=== PATIENT | female | born 1955 | race Caucasian/White ===

== ENCOUNTER 2019-09-06 17:12 | Emergency (ER) | payer MEDICARE, OTHER ==
[2019-09-06 17:38] LABS: BILIRUBIN,URINE NEGATIVE (NEGATIVE); GLUCOSE, URINE (UA) NEGATIVE (NEGATIVE); KETONES,URINE (UA) NEGATIVE (NEGATIVE); LEUKOCYTE ESTERASE, URINE NEGATIVE (NEGATIVE); NITRITE,URINE NEGATIVE (NEGATIVE); OCCULT BLOOD,URINE NEGATIVE (NEGATIVE); PROTEIN,URINE NEGATIVE (NEGATIVE); UROBILINOGEN,URINE 0.2 (NORMAL) E.U./dL (NORMAL)
[2019-09-06 17:40] LABS: CLARITY,URINE CLEAR (CLEAR)
--- NOTE | 2019-09-06 17:44 | ED Physician Documentation ---
PD HPI FEMALE - Stated complaint Stated Complaint: FEMALE /BACK PX - Chief complaint Chief Complaint: UTI - History obtained from History obtained from: Patient (63-year-old woman with history of recurrent UTIs presents with 2 weeks of right flank pain and urinary urgency and frequency. She had a urine done a couple of days ago which was positive and started on Cipro but subsequently the culture came back as a pretty much hernandez resistant bug, it was sensitive only to the penems. She was referred here for further evaluation and treatment. She denies fevers or chills.) Review of Systems Constitutional: denies: Fever, Chills Throat: denies: Sore throat Cardiac: denies: Chest pain / pressure, Palpitations Respiratory: denies: Dyspnea, Cough PD PAST MEDICAL HISTORY - Past Medical History Past Medical History: No Cardiovascular: Hypertension, High cholesterol Respiratory: None Endocrine/Autoimmune: Type 2 diabetes, HyPOthyroidism GI: None : None HEENT: None Psych: None Musculoskeletal: None Derm: None - Past Surgical History Ortho: Carpal Tunnel surgery /SWIFT TENDER: Tubal ligation - Present Medications Home Medications: Ambulatory Orders Medication Instructions Recorded Confirmed Aspirin [Aspir-Low] 81 mg PO DAILY 05/27/15 07/24/15 Hydrochlorothiazide 25 mg PO DAILY 05/27/15 07/24/15 Levothyroxine [Synthroid] 125 mcg PO QDAC 05/27/15 07/24/15 Multivit with Calcium,Iron,Min 1 each PO DAILY 05/27/15 07/24/15 [Multiple Vitamins For Women] metFORMIN [Glucophage] 500 mg PO ONCE 05/27/15 07/24/15 Simvastatin 10 mg PO 09/06/19 - Allergies Allergies/Adverse Reactions: Allergies Allergy/AdvReac Type Severity Reaction Status Date / Time No Known Drug Allergies Allergy Verified 09/06/19 17:33 - Social History Does the pt smoke?: No Smoking Status: Never smoker Does the pt drink ETOH?: No Does the pt have substance abuse?: No - Immunizations Immunizations are current?: Yes PD ED PE NORMAL - Vitals Vital signs reviewed: Yes - General General: Alert and oriented X 3, No acute distress - Abdomen Abdomen: Normal bowel sounds, Soft, Non tender - Back Back: Other (Mild right flank tenderness) - Neuro Neuro: Alert and oriented X 3, Normal speech Results - Vitals Vitals: Vital Signs - 24 hr 09/06/19 17:17 Temperature 36.7 C Heart Rate 67 Respiratory 18 Rate Blood Pressure 145/67 H O2 Saturation 95 Oxygen O2 Source Room air - Labs Labs: Laboratory Tests 09/06/19 09/06/19 09/06/19 17:26 17:48 17:48 WBC 6.9 RBC 4.28 Hgb 11.6 L Hct 36.6 L MCV 85.5 MCH 27.1 MCHC 31.7 L RDW 12.6 Plt Count 294 MPV 9.4 Neut # (Auto) 4.4 Lymph # (Auto) 1.6 Davidson # (Auto) 0.6 Eos # (Auto) 0.2 Baso # (Auto) 0.1 Absolute Nucleated RBC 0.00 Nucleated RBC % 0.0 Sodium 137 Potassium 3.3 L Chloride 99 L Carbon Dioxide 26 Anion Gap 12.0 BUN 20 Creatinine 0.9 Estimated GFR (MDRD) 63 L Glucose 112 H Calcium 9.3 Total Bilirubin 0.8 AST 34 ALT 31 Alkaline Phosphatase 57 Total Protein 7.9 Albumin 4.2 Globulin 3.7 Albumin/Globulin Ratio 1.1 Lipase 29 Urine Color YELLOW Urine Clarity CLEAR Urine pH 7.0 Ur Specific [place] 1.020 Urine Protein NEGATIVE Urine Glucose (UA) NEGATIVE Urine Ketones NEGATIVE Urine Occult Blood NEGATIVE Urine Nitrite NEGATIVE Urine Bilirubin NEGATIVE Urine Urobilinogen 0.2 (NORMAL) Ur Leukocyte Esterase NEGATIVE Ur Microscopic Review NOT INDICATED Urine Culture Comments NOT INDICATED - Rads (name of study) Retroperitoneal ultrasound Radiology: Final report received (Negative study) PD MEDICAL DECISION MAKING - ED course ED course: Spoke with on-call AUDIT OFFICER, regarding a possible PICC line. They generally do not do these emergently and felt that we could use a peripheral IV over the weekend and then they will reach out to her on Monday to arrange for a PICC. Spoke with the on-call pharmacist, we do not have ertapenem available at night so she was given meropenem. We will bring her back tomorrow and Monday to the ER for 1 g of ertapenem each day, and then she will have to have MAC orders completed by her primary care physician on Monday. 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 Departure - Departure Disposition: 01 Home, Self Care Clinical Impression: Urinary tract infection Qualifiers: Urinary tract infection type: acute pyelonephritis Qualified Code(s): N10 - Acute pyelonephritis Condition: Good Record reviewed to determine appropriate education?: Yes Instructions: ED Kidney Infec Female Comments: You were seen today for UTI, [place] that it is a fairly resistant organism with very few antibiotics that would be expected to work except for a selection of IV antibiotics known as the carbapenems. You received a dose of meropenem tonight, because that is what we have available when the pharmacist is not in house. Starting tomorrow and ongoing for 10 to 14 days I expect you to have a course of daily ertapenem, which is only a once a day drug. It is still necessary to go through the IV. Return tomorrow morning and Monday morning for a dose of ertapenem, 1 g IV. After that we will take the IV out and the anesthesiology service should be contacting you on Monday to arrange for what is known as a PICC line, that can stand for a prolonged period of time. Also on Monday you will need to contact your physician and have her write orders for ertapenem 1 g IV daily for 14 days through the medical ambulatory clinic. If at any time these plans are working you are welcome to return to the emergency department, preferably early in the day to have the infusion until all the details are worked out.
[2019-09-06 17:55] LABS: BASOPHILS # (AUTO) 0.1 10^3/uL (0.0-0.1); BASOPHILS % (AUTO) 0.7 %; EOSINOPHILS # (AUTO) 0.2 10^3/uL (0.0-0.7); HGB - HEMOGLOBIN 11.6 g/dL (12.0-16.0); LYMPHOCYTES # (AUTO) 1.6 10^3/uL (1.5-3.5); LYMPHOCYTES % (AUTO) 23.7 %; MEAN CORPUSCULAR HEMOGLOBIN 27.1 pg (27.0-31.0); MEAN CORPUSCULAR HGB CONC 31.7 g/dL (32.0-36.0); MEAN CORPUSCULAR VOLUME 85.5 fL (81.0-99.0); MEAN PLATELET VOLUME 9.4 fL (7.9-10.8); MONOCYTES # (AUTO) 0.6 10^3/uL (0.0-1.0); MONOCYTES % (AUTO) 8.4 %; NEUTROPHILS # (AUTO) 4.4 10^3/uL (1.5-6.6); NEUTROPHILS % (AUTO) 63.9 %; PLT - PLATELET COUNT 294 10^3/uL (130-450); RED BLOOD COUNT 4.28 10^6/uL (4.20-5.40); RED CELL DISTRIBUTION WIDTH 12.6 % (12.0-15.0); WHITE BLOOD COUNT 6.9 x10^3/uL (4.8-10.8)
[2019-09-06 18:08] LABS: ALBUMIN 4.2 g/dL (3.2-5.5); ALBUMIN/GLOBULIN RATIO 1.1 (1.0-2.2); BILIRUBIN,TOTAL 0.8 mg/dL (0.2-1.0); CALCIUM 9.3 mg/dL (8.5-10.3); CREATININE 0.9 mg/dL (0.4-1.0); TOTAL PROTEIN 7.9 g/dL (6.7-8.2)
[2019-09-06] MEDS ORDERED: MEROPENEM 1 GM in SODIUM CHLORIDE 0.9% MINIBAG 100 ML IV STA (19:16)
--- NOTE | 2019-09-06 19:41 | Ultrasound Report ---
Reason: flank pain uti Procedure Date: 09/06/2019 Accession Number: [id number] / [id number] Procedure: US - Retroperitoneal CPT Code: Final Report FULL RESULT: PROCEDURE: Retroperitoneal INDICATIONS: flank pain uti TECHNIQUE: Real-time scanning was performed of the kidneys and bladder, with image documentation. COMPARISON: None. FINDINGS: Kidneys: Kidneys are normal in size. Right kidney measures 9.3 cm long; left kidney measures 11 cm long. Right renal cortical thickness is 0.8 cm; left renal cortical thickness is 0.9 cm. Lobular contour of the left kidney or column of Dennis. No solid masses, hydronephrosis, or nephrolithiasis. Bladder: Prevoid volume of 213 cc. Postvoid residual of 11 cc. Bilateral ureteral jets are seen. IMPRESSION: 1. No hydronephrosis. 2. No post void residual. Reviewed by: Davian Evans MD on 09/06/2019 7:40 PM PDT Approved by: Davian Evans MD on 09/06/2019 7:40 PM PDT Station ID: [id number]
[2019-09-06 20:12] VITALS: BP 138/70
== END 2019-09-06 20:44 | disposition home or self-care (01) ==
LOC: ED 17:12
DX: N10 Acute pyelonephritis (principal); E11.9 Type 2 diabetes mellitus without complications; Z79.84 Long term (current) use of oral hypoglycemic drugs; I10 Essential (primary) hypertension; Z79.82 Long term (current) use of aspirin
CPT/HCPCS: 36415; 76770; 80053; 81003; 83690; 85025; 96365; 99283; 99284; J2185; 81001; 87086

== ENCOUNTER 2019-09-07 09:03 | Emergency (ER) | payer MEDICARE, OTHER ==
[2019-09-07] MEDS ORDERED: SODIUM CHLORIDE 0.9% IV ONE (10:00)
[2019-09-07] MEDS ORDERED: ERTAPENEM IV ONE (10:00)
--- NOTE | 2019-09-07 10:12 | ED Physician Documentation ---
PD HPI FEMALE - Stated complaint Stated Complaint: KIDNEY INFECTION - Chief complaint Chief Complaint: General - History obtained from History obtained from: Patient - History of Present Illness Timing - onset: How many months ago (4) Timing - details: Gradual onset, Still present, Waxing and waning Associated symptoms: Back pain, Dysuria, Urinary frequency Similar symptoms before: Diagnosis (pyelo) Recently seen: Emergency Dept - Additional information Additional information: 63-year-old female who is been treated for urinary tract infection with Cipro was found to have a multi drug resistant organism and she has come to the emergency department yesterday for treatment with a Pentam and she was given meropenem yesterday she is here today to get ertapenem and she will get a second dose through the emergency department tomorrow before getting a PICC line and medication through the MAC clinic. The patient indicates that overnight she has had some improvement in the discomfort she has had in her back for the past several months. 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: Tubal ligation - Present Medications Home Medications: Ambulatory Orders Medication Instructions Recorded Confirmed Aspirin [Aspir-Low] 81 mg PO DAILY 05/27/15 07/24/15 Hydrochlorothiazide 25 mg PO DAILY 05/27/15 07/24/15 Levothyroxine [Synthroid] 125 mcg PO QDAC 05/27/15 07/24/15 Multivit with Calcium,Iron,Min 1 each PO DAILY 05/27/15 07/24/15 [Multiple Vitamins For Women] metFORMIN [Glucophage] 500 mg PO ONCE 05/27/15 07/24/15 Simvastatin 10 mg PO 09/06/19 - Allergies Allergies/Adverse Reactions: Allergies Allergy/AdvReac Type Severity Reaction Status Date / Time No Known Drug Allergies Allergy Verified 09/07/19 09:12 - Social History Does the pt smoke?: No Smoking Status: Never smoker Does the pt drink ETOH?: No Does the pt have substance abuse?: No - Immunizations Immunizations are current?: Yes PD ED PE NORMAL - Vitals Vital signs reviewed: Yes (normal ) - General General: Alert and oriented X 3, No acute distress, Well developed/nourished - HEENT HEENT: Atraumatic, PERRL, EOMI - Neck Neck: Supple, no meningeal sign - Respiratory Respiratory: No respiratory distress - Back Back: No CVA TTP, No spinal TTP - Derm Derm: Normal color, Warm and dry, No rash - Extremities Extremities: No deformity, No edema, No calf tenderness / cord - Neuro Neuro: Alert and oriented X 3, cemetery vault installer 2-12 intact, No motor deficit, No sensory deficit, Normal speech Eye Opening: Spontaneous Motor: Obeys Commands Verbal: Oriented GCS Score: 15 - Psych Psych: Normal mood, Normal affect Results - Vitals Vitals: Vital Signs - 24 hr 09/07/19 09:09 Temperature 37.0 C Heart Rate 56 L Respiratory 16 Rate Blood Pressure 144/62 H O2 Saturation 98 Oxygen O2 Source Room air PD MEDICAL DECISION MAKING - ED course Complexity details: reviewed old records, reviewed results, considered differential, d/w patient ED course: 63-year-old female with chronic urinary tract infections has infection with a multidrug resistant organism and she has had some improvement with the use of meropenem yesterday. She is administered a dose of ertapenem here today with the anticipation for follow-up here tomorrow for a second dose of this. Departure - Departure Disposition: 01 Home, Self Care Clinical Impression: Urinary tract infection Condition: Stable Instructions: ED UTI Cystitis Female Follow-Up: RONNIE LIU [Primary Care Provider] - Comments: Follow-up again here tomorrow as planned for another infusion.
[2019-09-07 10:36] VITALS: BP 135/67
[2019-09-08] MEDS ORDERED: SODIUM CHLORIDE 0.9% IV SCH (09:00)
[2019-09-08] MEDS ORDERED: ERTAPENEM IV SCH (09:00)
== END 2019-09-07 10:37 | disposition home or self-care (01) ==
LOC: ED 09:03
DX: N39.0 Urinary tract infection, site not specified (principal); I10 Essential (primary) hypertension; E11.9 Type 2 diabetes mellitus without complications; Z79.84 Long term (current) use of oral hypoglycemic drugs
CPT/HCPCS: 96365; J1335

== ENCOUNTER 2019-09-08 07:38 | Emergency (ER) | payer MEDICARE, OTHER ==
[2019-09-08 09:00] VITALS: BP 125/71
[2019-09-08] MEDS ORDERED: ERTAPENEM 1 GM in SODIUM CHLORIDE 0.9% MINIBAG 100 ML IV SCH (09:00)
--- NOTE | 2019-09-08 09:09 | ED Physician Documentation ---
History of Present Illness - Stated complaint Stated Complaint: ANTIBIOTICS - Chief complaint Chief Complaint: General - History obtained from History obtained from: Patient (Patient here for IV dose of antibiotics. She had multiresistant UTI organism and was here for a dose of imipenem or ertapenem. She had received one on Monday and Monday (2 days and 1 day ago). She is due to get a PICC line tomorrow. She has not had any allergy type symptoms of swelling itching or hives. She is otherwise feeling okay.) Review of Systems Throat: denies: Oral lesions / sores, Sore throat GI: denies: Nausea, Vomiting, Diarrhea Skin: denies: Rash, Lesions PD PAST MEDICAL HISTORY - Past Medical History Past Medical History: Yes Cardiovascular: Hypertension, High cholesterol Respiratory: None Neuro: None Endocrine/Autoimmune: Type 2 diabetes, HyPOthyroidism GI: None HOOKER UP: None : None HEENT: Chronic vision loss Psych: None Musculoskeletal: None Derm: None - Past Surgical History Past Surgical History: Yes Ortho: Carpal Tunnel surgery /HOOKER UP: Tubal ligation - Present Medications Home Medications: Ambulatory Orders Medication Instructions Recorded Confirmed Aspirin [Aspir-Low] 81 mg PO DAILY 05/27/15 07/24/15 Hydrochlorothiazide 25 mg PO DAILY 05/27/15 07/24/15 Levothyroxine [Synthroid] 125 mcg PO QDAC 05/27/15 07/24/15 Multivit with Calcium,Iron,Min 1 each PO DAILY 05/27/15 07/24/15 [Multiple Vitamins For Women] metFORMIN [Glucophage] 500 mg PO ONCE 05/27/15 07/24/15 Simvastatin 10 mg PO 09/06/19 - Allergies Allergies/Adverse Reactions: Allergies Allergy/AdvReac Type Severity Reaction Status Date / Time No Known Drug Allergies Allergy Verified 09/08/19 07:43 - Social History Does the pt smoke?: No Smoking Status: Former smoker Does the pt drink ETOH?: No Does the pt have substance abuse?: No - Immunizations Immunizations are current?: Yes - POLST Patient has POLST: No PD ED PE NORMAL - Vitals Vital signs reviewed: Yes - General General: Alert and oriented X 3, No acute distress, Well developed/nourished - Derm Derm: Normal color, Warm and dry - Extremities Extremities: Other (IV in left proximal forearm without redness nor swelling. ) - Neuro Neuro: Alert and oriented X 3, No motor deficit, Normal speech Results - Vitals Vitals: Vital Signs - 24 hr 09/08/19 09/08/19 07:44 08:59 Temperature 36.4 C L 36.5 C Heart Rate 62 56 L Respiratory 16 16 Rate Blood Pressure 156/59 H 125/71 O2 Saturation 97 95 Oxygen O2 Source Room air PD MEDICAL DECISION MAKING - ED course Complexity details: reviewed old records, considered differential, d/w patient Departure - Departure Disposition: 01 Home, Self Care Clinical Impression: Medication administered Urinary tract infection Qualifiers: Urinary tract infection type: site unspecified Hematuria presence: without hematuria Qualified Code(s): N39.0 - Urinary tract infection, site not specified Follow-Up: RONNIE LIU [Primary Care Provider] - Comments: Follow-up with anesthesiology and your primary care to get the PICC line inserted in the outpatient doses of medications arranged. Return if signs of allergy reaction.
== END 2019-09-08 09:13 | disposition home or self-care (01) ==
LOC: ED 07:38
DX: N39.0 Urinary tract infection, site not specified (principal); I10 Essential (primary) hypertension; E11.9 Type 2 diabetes mellitus without complications; Z79.84 Long term (current) use of oral hypoglycemic drugs; Z79.82 Long term (current) use of aspirin; Z87.891 Personal history of nicotine dependence
CPT/HCPCS: 96365; 99283; 99284; J1335

== ENCOUNTER 2019-09-09 09:19 | Day surgery (SDC) | payer MEDICARE, OTHER ==
--- NOTE | 2019-09-09 10:35 | ANESTHESIA PROCEDURE NOTE ---
Anesth Central Line Template - Central Line Central Line Preparation: Consent Obtained, Time out completed, Ultrasound used, Sterile prep and drape Central line type: Double lumen (5 FR Dual, PICC) Central line catheter tip site resides: Superior vena cava (SVC) Central line aftercare: Secured, Placement confirmed, No pneumothorax, No complications, Bundle checklist complete, Pt tolerated well (Pt consent, procedure explained. R UE prep. R basilic v accessed with needle via US, wire threaded easily without resistance. Dilator after cath cut to 39 to match insertion and height. Cath tracing technology used to track tip to cavo-atrial junction. Unable to deflect p-wave d/t short catheter length. Both ports aspirate and inject easily with caps in place. Secured with stat-lock and tegaderm. Pt tolerated procedure without complication or complaint. Call for PCXR, ok to use PICC.)
--- NOTE | 2019-09-09 10:41 | XRAY Report ---
Reason: new PICC @R basilic v. Procedure Date: 09/09/2019 Accession Number: [id number] / [id number] Procedure: XR - Chest for Line Placement CPT Code: Final Report FULL RESULT: PROCEDURE: Chest for Line Placement INDICATIONS: new PICC @R basilic v. TECHNIQUE: One view of the chest was acquired. COMPARISON: None FINDINGS: Surgical changes and devices: Right PICC line is present with distal tip projecting over the proximal SVC. Lungs and pleura: No pleural effusions or pneumothorax. Lungs are clear. Mediastinum: Mediastinal contours appear normal. Heart size is normal. Bones and chest wall: No suspicious bony lesions. Overlying soft tissues appear unremarkable. IMPRESSION: Right PICC line as above. Reviewed by: Haylie Dejesus MD on 09/09/2019 10:40 AM PDT Approved by: Haylie Dejesus MD on 09/09/2019 10:40 AM PDT Station ID: [id number]
== END 2019-09-09 09:20 | disposition home or self-care (01) ==
LOC: SDS 09:19
PROVIDERS: ATTEND Registered Nurse
DX: M54.9 Dorsalgia, unspecified (principal); N39.0 Urinary tract infection, site not specified
CPT/HCPCS: 36569; 71045; C1751

== ENCOUNTER 2020-10-27 08:45 | Outpatient (CLI) | payer MEDICARE, OTHER ==
--- NOTE | 2020-11-04 15:24 | Mammography Report ---
BILATERAL DIGITAL SCREENING MAMMOGRAM 3D/2D: 10/27/2020 CLINICAL: Routine screening. Comparison is made to exams dated: 08/24/2018 mammogram, 07/04/2016 mammogram, and 07/11/2017 mammogram - [facility]. The tissue of both breasts is heterogeneously dense. This may lower the sensi tivity of mammography. No significant masses, calcifications, or other findings are seen in either breast. There has been no significant interval change. IMPRESSION: NEGATIVE There is no mammographic evidence of malignancy. A 1 year screening mammogram is recommended. This exam was interpreted at Station ID: [id number]. NOTE: For mammograms, a report in lay terms will be sent to the patient. Approximately 15% of breast malignancies will not be visualized mammographically. In the management of a palpable breast mass, a negative mammogram must not discourage biopsy of a clinically suspicious lesion. Electronically Signed By: Rakesh Smith M.D. ar/stan:11/03/2020 10:12:01 ACR BI-RADS Category 1: Negative 3341F PARENCHYMAL PATTERN: (D) - The breast(s) demonstrate(s) heterogeneously dense fibroglandular krystal petty. BI-RADS CATEGORY: (1) - 1 RECOMMENDATION: (ANNUAL) - Recommend routine annual screening mammography. [id number] 1 year screening LATERALITY: (B)
== END 2020-10-27 08:46 | disposition home or self-care (01) ==
LOC: DI.N 08:45
DX: Z12.31 Encounter for screening mammogram for malignant neoplasm of breast (principal)

== ENCOUNTER 2022-01-30 06:48 | Emergency (ER) | payer MEDICARE, OTHER ==
--- OUTSIDE RECORDS SUMMARY | 2022-01-30 07:19 | EXTERNAL MEDICAL SUMMARY RPT | Continuity of Care Document ---
:1955 Author Organization [facility] Address [address] [place] [address] Phone Allergies No information. Encounters No information. Functional Status No information. Immunizations No information. Medications No information. Problems No information. Procedures No information. Results/Labs test date author facility value unit interpret ation Result panel 1 (unknown) (no date) (unknown) (unknown) (no value) (units 336 34-7 unknown) (unknown) (no date) (unknown) (unknown) (no value) (units 145 56-5 unknown) (unknown) (no date) (unknown) (unknown) Concentration (units 8100-0 unknown) Result panel 2 (unknown) (no (unknown) (unknown) Concentration (units ( unknown) date) unknown) (unknown) (no (unknown) (unknown) Concentration (units 8 100-0 date) unknown) (unknown) (no (unknown) (unknown) Negative (units (unkno wn) date) unknown) (unknown) (no (unknown) (unknown) Negative (units 89553- 1 date) unknown) (unknown) (no (unknown) (unknown) Negative (units 15014- 4 date) unknown) (unknown) (no (unknown) (unknown) Negative (units (unkno wn) date) unknown) Result panel 3 (unknown) (no (unknown) (unknown) Concentration (units ( unknown) date) unknown) (unknown) (no (unknown) (unknown) Concentration (units 8 100-0 date) unknown) (unknown) (no (unknown) (unknown) Negative (units (unkno wn) date) unknown) (unknown) (no (unknown) (unknown) Negative (units 60036- 1 date) unknown) (unknown) (no (unknown) (unknown) Negative (units 66466- 4 date) unknown) (unknown) (no (unknown) (unknown) Negative (units (unkno wn) date) unknown) Result panel 4 (unknown) (no (unknown) (unknown) Concentration (units ( unknown) date) unknown) Result panel 5 (unknown) (no (unknown) (unknown) Comment (units (unkno wn) date) unknown) (unknown) (no (unknown) (unknown) Comment (units (unkno wn) date) unknown) (unknown) (no (unknown) (unknown) Concentration (units ( unknown) date) unknown) Result panel 6 (unknown) (no (unknown) (unknown) Concentration (units ( unknown) date) unknown) (unknown) (no (unknown) (unknown) Concentration (units 8 100-0 date) unknown) (unknown) (no (unknown) (unknown) Negative (units (unkno wn) date) unknown) (unknown) (no (unknown) (unknown) Negative (units 36669- 1 date) unknown) (unknown) (no (unknown) (unknown) Negative (units 11210- 4 date) unknown) (unknown) (no (unknown) (unknown) Negative (units (unkno wn) date) unknown) Result panel 7 (unknown) (no (unknown) (unknown) (no value) (units (unk nown) date) unknown) (unknown) (no (unknown) (unknown) [address] [place] [address] (units (unknown) date) [address], unknown) [place] [phone] (unknown) (no (unknown) (unknown) Concentration (units ( unknown) date) unknown) (unknown) (no (unknown) (unknown) Concentration (units ( unknown) date) unknown) (unknown) (no (unknown) (unknown) Glass Worker: (units ( unknown) date) Noah Stanley unknown) , Phone: [phone] (unknown) (no (unknown) (unknown) Negative (units (unkno wn) date) unknown) (unknown) (no (unknown) (unknown) Performed at: SE (units (unknown) date) - [facility] [place] unknown) Result panel 8 (unknown) (no (unknown) (unknown) (no value) (units (unk nown) date) unknown) (unknown) (no (unknown) (unknown) [address] [place] [address] (units (unknown) date) [address], unknown) [place] [phone] (unknown) (no (unknown) (unknown) Concentration (units ( unknown) date) unknown) (unknown) (no (unknown) (unknown) Glass Worker: (units ( unknown) date) Noah Stanley unknown) , Phone: [phone] (unknown) (no (unknown) (unknown) Negative (units (unkno wn) date) unknown) (unknown) (no (unknown) (unknown) [facility]formed [facility] Result panel 9 (unknown) (no (unknown) (unknown) (no value) (units (unk nown) date) unknown) (unknown) (no (unknown) (unknown) [address] [place] [address] (units (unknown) date) [facility], [place], unknown) [place] [phone] (unknown) (no (unknown) (unknown) Concentration (units ( unknown) date) unknown) (unknown) (no (unknown) (unknown) Concentration (units ( unknown) date) unknown) (unknown) (no (unknown) (unknown) Glass Worker: (units ( unknown) date) Noah Stanley unknown) , Phone: [phone] (unknown) (no (unknown) (unknown) Negative (units (unkno wn) date) unknown) (unknown) (no (unknown) (unknown) No acid fast (units (u nknown) date) bacilli isolated unknown) after 6 weeks. (unknown) (no (unknown) (unknown) Performed at: (units (unknown) date) - [facility] unknown) Social History No information. Vital Signs No information.
--- NOTE | 2022-01-30 07:42 | ED Physician Documentation ---
PD HPI BACK PAIN - Stated complaint Stated Complaint: LOWER LT BACK PX - Chief complaint Chief Complaint: Back Pain - History obtained from History obtained from: Patient - History of Present Illness Timing - onset: Yesterday Timing - duration: Days (1) Timing - details: Abrupt onset (awoke from sleep and noted abrupt left low back pain when started to get up from bed.), Still present Location: Lower, Left Quality: Pain, Spasm, Aching Associated symptoms: No: Fever, Weakness, Numbness Worsened by: Movement, Twisting Contributing factors: No: Lifting, Twisting, Trauma Similar symptoms before: Has not had sx before Recently seen: Not recently seen Review of Systems Constitutional: denies: Fever, Chills Nose: denies: Rhinorrhea / runny nose, Congestion Throat: denies: Sore throat Cardiac: denies: Chest pain / pressure Respiratory: denies: Cough GI: denies: Abdominal Pain, Nausea, Vomiting : denies: Dysuria, Frequency, Hematuria Skin: denies: Rash, Lesions Musculoskeletal: reports: Back pain (just since yesterday). 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 : None HEENT: Chronic vision loss Psych: None Musculoskeletal: None Derm: None - Past Surgical History Past Surgical History: Yes Ortho: Carpal Tunnel surgery /DIGITAL FORENSICS EXAMINER: Tubal ligation - Present Medications Home Medications: Ambulatory Orders Medication Instructions Recorded Confirmed Aspirin [Aspir-Low] 81 mg PO DAILY 05/27/15 09/11/19 Levothyroxine [Synthroid] 125 mcg PO QDAC 05/27/15 09/11/19 Multivit with Calcium,Iron,Min 1 each PO DAILY 05/27/15 09/11/19 [Multiple Vitamins For Women] hydroCHLOROthiazide 25 mg PO DAILY 05/27/15 09/11/19 [Hydrochlorothiazide] metFORMIN [Glucophage] 500 mg PO ONCE 05/27/15 09/11/19 Simvastatin 10 mg PO DAILY 09/06/19 09/11/19 Naproxen 500 mg PO BID 7 Days #15 tab 01/30/22 oxyCODONE [Roxicodone] 5 mg PO Q6H PRN #20 tablet 01/30/22 tiZANidine [Zanaflex] 4 mg PO Q8H PRN #25 tablet 01/30/22 - Allergies Allergies/Adverse Reactions: Allergies Allergy/AdvReac Type Severity Reaction Status Date / Time No Known Drug Allergies Allergy Verified 01/30/22 07:03 - Social History Does the pt smoke?: No Smoking Status: Former smoker Does the pt drink ETOH?: No Does the pt have substance abuse?: No - Immunizations Immunizations are current?: Yes - POLST Patient has POLST: No PD ED PE NORMAL - Vitals Vital signs reviewed: Yes - General General: Alert and oriented X 3, Well developed/nourished, Other (appears very uncomfortable with lying to side and guarding ROM. Winces with movement. ) - Cardiac Cardiac: RRR, No murmur - Respiratory Respiratory: No respiratory distress, Clear bilaterally - Abdomen Abdomen: Normal bowel sounds, Soft, Non tender, Non distended, No organomegaly - Female Female : Deferred - Rectal Rectal: Deferred - Back Back: No CVA TTP, Other (tender left paralumbar area upper lumbar. Not tender to light touch. No masses/sores. Is tender in muscle. ) - Derm Derm: Normal color, Warm and dry Results - Vitals Vitals: Oxygen O2 Source Room air - Labs Labs: Laboratory Tests 01/30/22 01/30/22 08:04 08:04 WBC 7.7 RBC 4.50 Hgb 12.0 Hct 38.0 MCV 84.4 MCH 26.7 L MCHC 31.6 L RDW 12.8 Plt Count 363 MPV 9.1 Neut # (Auto) 5.9 Lymph # (Auto) 1.1 L [place] # (Auto) 0.5 Eos # (Auto) 0.1 Baso # (Auto) 0.1 Absolute Nucleated RBC 0.00 Nucleated RBC % 0.0 Sodium 137 Potassium 3.9 Chloride 101 Carbon Dioxide 26 Anion Gap 10.0 BUN 17 Creatinine 0.8 Estimated GFR (MDRD) 71 L Glucose 111 H Calcium 10.0 Total Bilirubin 0.5 AST 26 ALT 21 Alkaline Phosphatase 58 Total Protein 8.0 Albumin 4.2 Globulin 3.8 Albumin/Globulin Ratio 1.1 Lipase 29 - Rads (name of study) abd/pelvic CT Radiology: Prelim report reviewed (no acute process. Small lesion anterior bladder c/w possible bladder diverticulum. Not acute process. ), See rad report PD MEDICAL DECISION MAKING - ED course Complexity details: reviewed results, re-evaluated patient (improved with pain meds here.), considered differential, d/w patient Departure - Departure Disposition: 01 Home, Self Care Clinical Impression: Lower back pain Qualifiers: Chronicity: acute Back pain laterality: left Sciatica presence: without sciatica Qualified Code(s): M54.50 - Low back pain, unspecified Condition: Stable Record reviewed to determine appropriate education?: Yes Instructions: ED Spasm Back No Trauma Follow-Up: EVON ROLDAN MD [Primary Care Provider] - Prescriptions: Naproxen 500 mg PO BID 7 Days #15 tab oxyCODONE [Roxicodone] 5 mg PO Q6H PRN #20 tablet PRN Reason: Pain tiZANidine [Zanaflex] 4 mg PO Q8H PRN #25 tablet PRN Reason: Spasms Comments: Your blood counts/white count as well as electrolytes, kidney function, blood sugar are normal. Your CT scan does not show any acute abnormality to account for the pain. At this point it would seem like a muscular pain with spasms. Use some heat and gentle stretching for the area. Anti-inflammatory of naproxen twice daily with food. To that add Tylenol every 4-6 hours if needed or for pain and oxycodone every 6 hours if needed for worse pain. Tizanidine muscle relaxant for spasms and stiffness 3 times daily for the next several days to a week. Recheck if not improved well over the next few days and return if worsening. Watch for other symptoms to develop such as rash, fevers, numbness or weakness etc. I sent your prescription to [facility] pharmacy in [place]. I am prescribing a short course of narcotic pain medication for you. These are potentially dangerous and addictive medications that should be used carefully. These medications may constipate you. Take an [id number] stool softener such as docusate twice daily with plenty of water while taking these medications. If you go 24 hours without a bowel movement, take [id number] MiraLAX, per package instructions. Do not drink or drive while taking these medications. If you received narcotic or sedating medications while in the emergency department do not drive for 24 hours. Store this medication in a safe, secure place and out of reach of children. It is a violation of federal law to give or sell this medication to another person or to use in a manner other than prescribed. The ED will not refill narcotic prescriptions, including prescriptions lost or stolen. You can dispose of unwanted medications at the [facility]'s office or at several pharmacies such as [facility]. Discharge Date/Time: 01/30/22 10:42
[2022-01-30] MEDS ORDERED: HYDROmorphone 1 MG/ML CARPUJECT IVP STA (07:54)
[2022-01-30] MEDS ORDERED: KETOROLAC 15 MG/ML VIAL IVP STA (07:54)
[2022-01-30] MEDS ORDERED: iohexoL-300 100 ML VIAL ONE (08:03)
[2022-01-30 08:08] LABS: BASOPHILS # (AUTO) 0.1 10^3/uL (0.0-0.1); BASOPHILS % (AUTO) 0.6 %; EOSINOPHILS # (AUTO) 0.1 10^3/uL (0.0-0.7); EOSINOPHILS % (AUTO) 1.8 %; LYMPHOCYTES # (AUTO) 1.1 10^3/uL (1.5-3.5); LYMPHOCYTES % (AUTO) 14.2 %; MEAN CORPUSCULAR HEMOGLOBIN 26.7 pg (27.0-31.0); MEAN CORPUSCULAR HGB CONC 31.6 g/dL (32.0-36.0); MEAN CORPUSCULAR VOLUME 84.4 fL (81.0-99.0); MEAN PLATELET VOLUME 9.1 fL (7.9-10.8); MONOCYTES # (AUTO) 0.5 10^3/uL (0.0-1.0); NEUTROPHILS # (AUTO) 5.9 10^3/uL (1.5-6.6); PLT - PLATELET COUNT 363 10^3/uL (130-450); RED CELL DISTRIBUTION WIDTH 12.8 % (12.0-15.0); WHITE BLOOD COUNT 7.7 x10^3/uL (4.8-10.8)
[2022-01-30 08:27] LABS: ALBUMIN 4.2 g/dL (3.2-5.5); ALBUMIN/GLOBULIN RATIO 1.1 (1.0-2.2); BILIRUBIN,TOTAL 0.5 mg/dL (0.2-1.0); CREATININE 0.8 mg/dL (0.4-1.0); POTASSIUM 3.9 mmol/L (3.5-5.0)
--- NOTE | 2022-01-30 09:06 | CT Report ---
PROCEDURE: ABDOMEN/PELVIS W INDICATIONS: left low back pain x 1 day. no trauma. CONTRAST: 100ml omni 300 TECHNIQUE: After the administration of intravenous contrast, 5 mm thick sections acquired from the diaphragms to the symphysis. 5 mm thick coronal and sagittal reformats were acquired. For radiation dose reducti on, the following was used: automated exposure control, adjustment of mA and/or kV according to rey ent size. COMPARISON: None. FINDINGS: Image quality: Excellent. ABDOMEN: Lung bases: Mild basilar atelectasis. No pleural effusion. Mild bronchial wall thickening. Heart size is normal. Solid organs: Liver and spleen are normal in size and enhancement. No focal lesion. Gallbladder is u nremarkable. Biliary system is non dilated. Pancreas enhances normally. No peripancreatic fluid col lection. No adrenal nodules. Kidneys demonstrate normal size and enhancement, without hydronephrosis . Peritoneum and bowel: Bowel loops demonstrate normal wall thickness and caliber. The appendix is not dilated. No free fluid or air. Nodes and vessels: No retroperitoneal or mesenteric adenopathy by size criteria. Aorta and inferior vena cava are normal in size. Circumferential calcified atherosclerotic plaque. Miscellaneous: No ventral hernias. PELVIS: Genitourinary: Small nodule anterior to the urinary bladder measuring 0.6 cm, (373). Bladder wall t hickness is normal. No stones. Anteverted uterus. Miscellaneous: No inguinal hernias or adenopathy. Bones: No suspicious bony lesions. No vertebral body compression fractures. Mild to moderate degene rative change in the visualized spine. There is 0.4 cm anterolisthesis of L4 on L5. Small disc protru sinai at this level. IMPRESSION: 1. No acute abnormality identified. No free fluid. No hydronephrosis. No bowel obstruction. 2. Mild to moderate degenerative change in the lumbar spine. 3. Small nodule anterior to the nerve bladder measuring 0.6 cm. Clinical significance of this finding is uncertain. This could represent a small lymph node or endometrioma. Bladder diverticulum is felt to be less likely. If prior CT imaging is available this would be helpful for comparison. 4. Circumferential calcified atherosclerotic plaque in the abdominal aorta. Reviewed by: Davian Evans MD on 01/30/2022 8:05 AM [facility] Approved by: Davian Evans MD on 01/30/2022 8:05 AM [facility] Station ID: [id number]
[2022-01-30 10:42] VITALS: BP 112/66
== END 2022-01-30 10:42 | disposition home or self-care (01) ==
LOC: ED 06:48
DX: M54.50 Low back pain, unspecified (principal); Z87.891 Personal history of nicotine dependence
CPT/HCPCS: 36415; 74177; 80053; 83690; 85025; 96374; 99284; J1170; Q9967

== ENCOUNTER 2022-02-04 14:22 | Outpatient (CLI) | payer MEDICARE, OTHER | END 2022-02-04 23:59 | disposition home or self-care (01) | LOC: LAB.N 14:22 | PROVIDERS: ATTEND Registered Nurse | DX: N12 Tubulo-interstitial nephritis, not specified as acute or chronic (principal) | CPT/HCPCS: 87077; 87086; 87181 ==

== ENCOUNTER 2023-04-06 08:45 | Outpatient (CLI) | payer MEDICARE, OTHER | END 2023-04-06 09:00 | disposition home or self-care (01) | LOC: LAB.N 08:45 | PROVIDERS: ATTEND Physician Assistant Medical | DX: R30.0 Dysuria (principal) | CPT/HCPCS: 87086; 87181 ==